=== PATIENT | female | born 1970 ===

== ENCOUNTER 2018-03-19 07:00 | Day surgery (SDC) | payer OTHER | END 2018-03-19 14:30 | disposition home or self-care (01) | LOC: CIR.AMB 07:00 | DX: M77.12 Lateral epicondylitis, left elbow (principal) ==

== ENCOUNTER 2021-12-19 07:16 | Inpatient (IN) | payer OTHER ==
[~2021-12-19] VITALS: Ht 157.5 cm; Wt 104.3 kg
[2021-12-20] MEDS ORDERED: LATANOPROST2.5 ML (08:59)
[2021-12-20] MEDS ORDERED: VALACYCLOVIR1000 MG (08:59)
== END 2021-12-22 14:20 | disposition home or self-care (01) | DRG 742 ==
LOC: CIR.AMB 07:16 → OB/GYN 16:07 → O/R 16:07 → OB/GYN 16:45
PROVIDERS: ADMIT Specialist; ATTEND Specialist
PROC: 0UT20ZZ Resection of Bilateral Ovaries, Open Approach (ICD-10-PCS; 2021-12-19)
PROC: 0DNU4ZZ Release Omentum, Percutaneous Endoscopic Approach (ICD-10-PCS; 2021-12-19)
PROC: 0TN74ZZ Release Left Ureter, Percutaneous Endoscopic Approach (ICD-10-PCS; 2021-12-19)
PROC: 0TN64ZZ Release Right Ureter, Percutaneous Endoscopic Approach (ICD-10-PCS; 2021-12-19)
PROC: 0DNW4ZZ Release Peritoneum, Percutaneous Endoscopic Approach (ICD-10-PCS; 2021-12-19)
PROC: 0DN84ZZ Release Small Intestine, Percutaneous Endoscopic Approach (ICD-10-PCS; 2021-12-19)
PROC: 0TQB0ZZ Repair Bladder, Open Approach (ICD-10-PCS; 2021-12-19)
PROC: 0UT70ZZ Resection of Bilateral Fallopian Tubes, Open Approach (ICD-10-PCS; principal; 2021-12-19 10:30)
DX: N83.291 Other ovarian cyst, right side (principal); N99.72 Accidental puncture and laceration of a genitourinary system organ or structure during other procedure; N83.292 Other ovarian cyst, left side; Z20.822 Contact with and (suspected) exposure to COVID-19; N76.3 Subacute and chronic vulvitis